=== PATIENT | male | born 1990 ===

== ENCOUNTER 2019-04-10 17:59 | Day surgery (SDC) | payer SELFPAY ==
[~2019-04-10] VITALS: Ht 172.7 cm; Wt 66.9 kg
[2019-04-10] VITALS (9 sets, daily range): BP systolic 124–149; BP diastolic 56–87
[~2019-04-10 17:59] MED LIST: OMEP20CA13 PO; PANT40TA2 PO
[2019-04-10 18:29] LABS: BASOPHILS % (AUTO) 0 % (0-10); EOSINOPHILS % (AUTO) 0 % (0-10); HEMATOCRIT 44 % (40-54); HEMOGLOBIN 15.6 G/DL (13.3-17.7); LYMPHOCYTES % (AUTO) 6 % (12-44); MEAN CORPUSCULAR HEMOGLOBIN 31 PG (25-34); MEAN CORPUSCULAR HGB CONC 35 G/DL (32-36); MEAN CORPUSCULAR VOLUME 88 FL (80-99); MEAN PLATELET VOLUME 9.9 FL (7.4-10.4); MONOCYTES # (AUTO) 1.1 X 10^3 (0.0-1.0); MONOCYTES % (AUTO) 6 % (0-12); NEUTROPHILS # (AUTO) 16.2 X 10^3 (1.8-7.8); NEUTROPHILS % (AUTO) 88 % (42-75); PLATELET COUNT 270 10^3/uL (130-400); WHITE BLOOD COUNT 18.4 10^3/uL (4.3-11.0)
[2019-04-10] MEDS ORDERED: HOLD METFORMIN - RECEIVED CONTRAST 20 ML VIAL IV SCH (18:30)
[2019-04-10] MEDS ORDERED: fentaNYL INJECTION 100 MCG/2 ML AMP IVP ONE ×2 (18:30→20:15)
[2019-04-10] MEDS ORDERED: NS 100 ML (IVPB) BAG IV ONE (18:30)
[2019-04-10] MEDS ORDERED: IOHEXOL 350 MG/ML 100 ML (OMNIPAQUE 350) VIAL IV ONE (18:30)
--- NOTE | 2019-04-10 18:30 | ED Abdominal Pain ---
General Chief Complaint: Abdominal/GI Problems Stated Complaint: FEVER/STOMACH PAIN Nursing Triage Note: AMB TO ROOM WITH FEMALE REPORTS HAS HAD LOW ABD PAIN SINCE THIS AM FEELING LIKE HE COULD VOMIT ,BUT UNABALE TO. HAD HERNIA SURG IN NOVEMBER Sepsis Screen: No Definite Risk Source of Information: Patient Exam Limitations: No Limitations History of Present Illness Date Seen by Provider: Apr 10, 2019 Time Seen by Provider: 18:27 Initial Comments To ER with reports of lower abdominal pain this morning. He is a poor appetite. Fever up to 99. Nausea no vomiting because he's had a Tamar fundoplication. [place] constipated like he needed to have a bowel movement but was unable to do so. He did take some Pepto-Bismol. Timing/Duration: 12-24 Hours Severity/Quality: Moderate Radiation: No Radiation Activities at Onset: None Allergies and Home Medications Allergies Coded Allergies: No Known Drug Allergies (Unverified , 05/06/15) Home Medications Pantoprazole Sodium 40 Mg Tablet.dr, 40 MG PO DAILY Prescribed by: STAN GOODMAN on 05/06/15 7407 Patient Home Medication List Home Medication List Reviewed: Yes Review of Systems Review of Systems Constitutional: see HPI EENTM: No Symptoms Reported Respiratory: No Symptoms Reported Cardiovascular: No Symptoms Reported Gastrointestinal: See HPI, Abdominal Pain Genitourinary: No Symptoms Reported Musculoskeletal: no symptoms reported Skin: no symptoms reported Psychiatric/Neurological: No Symptoms Reported Endocrine: No Symptoms Reported Past Srvblte-Ufwpvh-Ybhqmt Hx Patient Social History Alcohol Use: Denies Use Recreational Drug Use: No Smoking Status: Never a Smoker Recent Foreign Travel: No Contact w/Someone Who Travel: No Recent Infectious Disease Expo: No Past Medical History Surgeries: Yes (HERNIA) Respiratory: No Cardiac: No Neurological: No Gastrointestinal: No Musculoskeletal: No Endocrine: No Physical Exam Vital Signs Vital Signs - First Documented 04/10/19 18:09 Temp 99.2 Pulse 85 Resp 18 B/P (MAP) 129/79 (96) Pulse Ox 100 O2 Delivery Room Air Capillary Refill : Less Than 3 Seconds Height/Weight/BMI Height: 5'11.00" Weight: 150lbs. oz. 68.843168mz; BMI Method:Stated General Appearance: WD/WN, no apparent distress HEENT: PERRL/EOMI, normal ENT inspection Respiratory: no respiratory distress, no accessory muscle use Cardiovascular: regular rate, rhythm, no murmur Gastrointestinal: normal bowel sounds, soft, tenderness Extremities: normal range of motion, non-tender Neurologic/Psychiatric: alert, normal mood/affect, oriented x 3 Skin: normal color, warm/dry Progress/Results/Core Measures Results/Orders Lab Results Laboratory Tests Test 04/10/19 18:15 04/10/19 18:30 Range/Units White Blood Count 18.4 H 4.3-11.0 10^3/uL Red Blood Count 5.04 4.35-5.85 10^6/uL Hemoglobin 15.6 13.3-17.7 G/DL Hematocrit 44 40-54 % Mean Corpuscular Volume 88 80-99 FL Mean Corpuscular Hemoglobin 31 25-34 PG Mean Corpuscular Hemoglobin Concent 35 32-36 G/DL Red Cell Distribution Width 12.0 10.0-14.5 % Platelet Count 270 130-400 10^3/uL Mean Platelet Volume 9.9 7.4-10.4 FL Neutrophils (%) (Auto) 88 H 42-75 % Lymphocytes (%) (Auto) 6 L 12-44 % Monocytes (%) (Auto) 6 0-12 % Eosinophils (%) (Auto) 0 0-10 % Basophils (%) (Auto) 0 0-10 % Neutrophils # (Auto) 16.2 H 1.8-7.8 X 10^3 Lymphocytes # (Auto) 1.0 1.0-4.0 X 10^3 Monocytes # (Auto) 1.1 H 0.0-1.0 X 10^3 Eosinophils # (Auto) 0.0 0.0-0.3 10^3/uL Basophils # (Auto) 0.0 0.0-0.1 10^3/uL Neutrophils % (Manual) 89 % Lymphocytes % (Manual) 2 % Monocytes % (Manual) 5 % Eosinophils % (Manual) 0 % Basophils % (Manual) 0 % Band Neutrophils 3 % Reactive Lymphocytes 1 % Blood Morphology Comment NORMAL Sodium Level 135 135-145 MMOL/L Potassium Level 3.8 3.6-5.0 MMOL/L Chloride Level 100 98-107 MMOL/L Carbon Dioxide Level 21 21-32 MMOL/L Anion Gap 14 5-14 MMOL/L Blood Urea Nitrogen 10 7-18 MG/DL Creatinine 0.87 0.60-1.30 MG/DL Estimat Glomerular Filtration Rate > 60 BUN/Creatinine Ratio 11 Glucose Level 156 H 70-105 MG/DL Calcium Level 10.3 H 8.5-10.1 MG/DL Corrected Calcium 8.5-10.1 MG/DL Total Bilirubin 2.1 H 0.1-1.0 MG/DL Aspartate Amino Transf (AST/SGOT) 26 5-34 U/L Alanine Aminotransferase (ALT/SGPT) 22 0-55 U/L Total Protein 8.4 H 6.4-8.2 GM/DL Albumin 5.0 H 3.2-4.5 GM/DL Urine Color YELLOW Urine Clarity CLEAR Urine pH 8 5-9 Urine Specific [place] 1.015 L 1.016-1.022 Urine Protein 1+ H NEGATIVE Urine Glucose (UA) NEGATIVE NEGATIVE Urine Ketones 4+ H NEGATIVE Urine Nitrite NEGATIVE NEGATIVE Urine Bilirubin NEGATIVE NEGATIVE Urine Urobilinogen NORMAL NORMAL MG/DL Urine Leukocyte Esterase 1+ H NEGATIVE Urine RBC (Auto) NEGATIVE NEGATIVE Urine RBC NONE /HPF Urine WBC 0-2 /HPF Urine Squamous Epithelial Cells RARE /HPF Urine Crystals PRESENT H /LPF Urine Amorphous Sediment MOD HELEN PHOSPHATE H /LPF Urine Bacteria TRACE /HPF Urine Casts NONE /LPF Urine Mucus MODERATE H /LPF Urine Culture Indicated NO My Orders Orders - VITALY MARTINEZ APRN Cbc With Automated Diff (04/10/19 18:23) Comprehensive Metabolic Panel (04/10/19 18:23) Ua Culture If Indicated (04/10/19 18:23) Ed Iv/Invasive Line Start (04/10/19 18:23) Ct Abd/Pelv W (Appendicitis) (04/10/19 18:23) Fentanyl Injection (Sublimaze Injection (04/10/19 18:30) Manual Differential (04/10/19 18:15) Iohexol Injection (Omnipaque 350 Mg/Ml 1 (04/10/19 18:30) Received Contrast (Hold Metformin- Contr (04/10/19 18:30) Ns (Ivpb) (Sodium Chloride 0.9% Ivpb Bag (04/10/19 18:30) Ondansetron Injection (Zofran Injectio (04/10/19 18:45) Ns Iv 1000 Ml (Sodium Chloride 0.9%) (04/10/19 19:00) Medications Given in ED Current Medications Medications Dose Ordered Sig/King Route Start Time Stop Time Status Last Admin Dose Admin Fentanyl Citrate 50 mcg ONCE ONCE IVP 04/10/19 18:30 04/10/19 18:31 DC 04/10/19 18:30 50 MCG Iohexol 100 ml ONCE ONCE IV 04/10/19 18:30 04/10/19 18:31 DC 04/10/19 18:54 100 ML Sodium Chloride 100 ml ONCE ONCE IV 04/10/19 18:30 04/10/19 18:31 DC 04/10/19 18:54 100 ML Vital Signs/I&O 04/10/19 04/10/19 18:09 18:30 Temp 99.2 99.2 Pulse 85 Resp 18 B/P (MAP) 129/79 (96) Pulse Ox 100 O2 Delivery Room Air Blood Pressure Mean: 96 Departure Impression Primary Impression: Acute appendicitis Qualified Codes: K35.30 - Acute appendicitis with localized peritonitis, without perforation or gangrene Disposition: ADMITTED INPATIENT Condition: Stable Admissions Decision to Admit Reason: Admit from ER (General) Decision to Admit/Date: Apr 10, 2019 Time/Decision to Admit Time: 19:01 Departure-Patient Inst. Referrals: NO,LOCAL PHYSICIAN (PCP/Family) Primary Care Physician VITALY MARTINEZ CORN PRESS OPERATOR Apr 10, 2019 18:29
[2019-04-10 18:37] LABS: BILIRUBIN,URINE NEGATIVE (NEGATIVE); CLARITY,URINE CLEAR; COLOR,URINE YELLOW; GLUCOSE, URINE (UA) NEGATIVE (NEGATIVE); KETONES,URINE 4+ (NEGATIVE); LEUKOCYTE ESTERASE ,URINE 1+ (NEGATIVE); NITRITE,URINE NEGATIVE (NEGATIVE); PH,URINE 8 (5-9); PROTEIN,URINE 1+ (NEGATIVE); UROBILINOGEN,URINE NORMAL (NORMAL)
[2019-04-10 18:43] LABS: ALANINE AMINOTRANSFERASE 22 U/L (0-55); BILIRUBIN,TOTAL 2.1 MG/DL (0.1-1.0); BUN/CREATININE RATIO 11; CALCIUM 10.3 MG/DL (8.5-10.1); CARBON DIOXIDE 21 MMOL/L (21-32); CHLORIDE 100 MMOL/L (98-107); CREATININE SERUM 0.87 MG/DL (0.60-1.30); GFR ESTIMATED > 60; GLUCOSE 156 MG/DL (70-105); POTASSIUM 3.8 MMOL/L (3.6-5.0); SODIUM 135 MMOL/L (135-145); TOTAL PROTEIN 8.4 GM/DL (6.4-8.2)
[2019-04-10 18:45] LABS: BAND NEUTROPHILS 3 %; BASOPHILS % (MANUAL) 0 %; EOSINOPHILS % (MANUAL) 0 %; LYMPHOCYTES % (MANUAL) 2 %; MONOCYTES % (MANUAL) 5 %; NEUTROPHILS % (MANUAL) 89 %; RBC MORPH NORMAL; REACTIVE LYMPHOCYTES 1 %
[2019-04-10] MEDS ORDERED: ONDANSETRON 4 MG/2 ML (SDV) Z0FRAN IVP ONE ×2 (18:45→20:30)
[2019-04-10 18:47] LABS: AMORPHOUS SEDIMENT,UR MOD AMOR PHOSPHATE /LPF; BACTERIA,URINE TRACE /HPF; SQUAMOUS EPITHELIAL CELL,UR RARE /HPF; WBC,URINE 0-2 /HPF
[2019-04-10] MEDS ORDERED: NS IV 1000 ML 1,000 ML IV SCH (19:00)
[2019-04-10 19:12] LABS: ALKALINE PHOSPHATASE 92 U/L (40-136)
--- NOTE | 2019-04-10 19:17 | Diagnostic Imaging Report ---
PROCEDURE: CT abdomen and pelvis with contrast, rule out appendicitis. TECHNIQUE: Multiple contiguous axial images were obtained through the abdomen and pelvis after the administration of intravenous contrast. INDICATION: Right lower quadrant pain with nausea. COMPARISON: None available. FINDINGS: Lower chest: The lung bases are clear. No pericardial or pleural effusion. Peritoneum: No free intraperitoneal air. A small amount of free pelvic fluid is present. Liver and biliary system: The liver is normal. The gallbladder is normal. No biliary duct dilation. Spleen and Pancreas: Spleen is normal. The pancreas enhances normally without mass lesion or peripancreatic inflammatory changes. Adrenals: Normal. tract: The kidneys enhance normally without suspicious mass or obstruction. Urinary bladder is distended without wall thickening. Prostate is not enlarged. GI tract: Stomach is filled with air and a small amount of fluid, and there is no wall thickening. No bowel obstruction. No pericolonic inflammatory changes. Appendix is dilated measuring 11 mm, and fluid filled. There is a small amount of surrounding inflammation involving the appendix. No loculated fluid collection to indicate abscess. Vasculature and Lymph nodes: Normal caliber aorta. No abdominal or pelvic lymphadenopathy. Musculoskeletal: No concerning osseous lesion. IMPRESSION: 1. Acute appendicitis. No perforation, abscess formation, or bowel obstruction. 2. A small amount of free pelvic ascites is likely reactive in nature. Dictated by: Dictated on workstation # [id number]
[2019-04-10] MEDS ORDERED: LIDOCAINE PF 2% 5 ML (XYLOCAINE) VIAL ONE (20:06)
[2019-04-10] MEDS ORDERED: MIDAZOLAM 2 MG/2 ML (VERSED) VIAL ONE (20:06)
[2019-04-10] MEDS ORDERED: DEXAMETHASONE 10 MG/ML (DECADRON) 1 ML VIAL ONE (20:06)
[2019-04-10] MEDS ORDERED: proPOfol 200 MG/20 ML (DIPRIVAN) VIAL IV ONE (20:06)
[2019-04-10] MEDS ORDERED: fentaNYL INJECTION 100 MCG/2 ML AMP ONE (20:06)
[2019-04-10] MEDS ORDERED: ONDANSETRON 4 MG/2 ML (SDV) Z0FRAN ONE (20:06)
[2019-04-10] MEDS ORDERED: SEVOFLURANE (ULTANE) 15 ML INHAL SOLN ONE ×4 (20:06→21:46)
[2019-04-10] MEDS ORDERED: ROCURONIUM 10 MG/ML 5 ML SYRINGE IV ONE (20:06)
[2019-04-10] MEDS ORDERED: BUP/EPI 0.5% 1:200,000 (MARCAINE) 10ML VIAL IJ ONE (20:13)
--- NOTE | 2019-04-10 20:37 | Consultation - Surgery ---
History of Present Illness History of Present Illness Patient Consulted On(trent/time) 04/10/19 20:31 Time Seen by Provider: 20:18 History of Present Illness Surgery asked to consult regarding RLQ pain. HPI per ED: AMB TO ROOM WITH FEMALE REPORTS HAS HAD LOW ABD PAIN SINCE THIS AM FEELING LIKE HE COULD VOMIT ,BUT UNABALE TO. HAD HERNIA SURG IN NOVEMBER To ER with reports of lower abdominal pain this morning. He is a poor appetite. Fever up to 99. Nausea no vomiting because he's had a Tamar fundoplication. [place] constipated like he needed to have a bowel movement but was unable to do so. He did take some Pepto-Bismol. Timing/Duration: 12-24 Hours Severity/Quality: Moderate Radiation: No Radiation Activities at Onset: None When I spoke to pt tonight he states that the pain started when he woke up and got progressively worse; he has not been able to eat. He states the same thing happened to him a couple of weeks ago, but it went away. He describes a sharp crampy pain that is made worse with movement and pain meds are the only thing that help the pain. Allergies and Home Medications Allergies Coded Allergies: No Known Drug Allergies (Unverified , 05/06/15) Home Medications Pantoprazole Sodium 40 Mg Tablet.dr, 40 MG PO DAILY Prescribed by: STAN GOODMAN on 05/06/15 1433 Patient Home Medication List Home Medication List Reviewed: Yes Past Jlfgnlo-Lzkbhk-Vwmyxc Hx Patient Social History Alcohol Use: Denies Use Recreational Drug Use: No Smoking Status: Never a Smoker Recent Foreign Travel: No Contact w/Someone Who Travel: No Recent Infectious Disease Expo: No Surgeries History of Surgeries: Yes (HERNIA) Respiratory History of Respiratory Disorde: No Cardiovascular History of Cardiac Disorders: No Neurological History of Neurological Disord: No Gastrointestinal History of Gastrointestinal Di: No Musculoskeletal History of Musculoskeletal Dis: No Endocrine History of Endocrine Disorders: No Cancer History of Cancer: No Integumentary History of Skin or Integumenta: No Blood Transfusions History of Blood Disorders: No Adverse Reaction to a Blood Tr: No Reviewed Nursing Assessment Reviewed/Agree w Nursing PMH: No Family Medical History Significant Family History: Diabetes (pt denies any in family), Hypertension (Denies) Review of Systems-General Constitutional: chills, fever, malaise, weakness EENTM: No blurred vision, No double vision, No mouth pain, No mouth swelling, No epistaxis Respiratory: No cough, No dyspnea on exertion, No hemoptysis, No short of breath Cardiovascular: No chest pain, No edema, No palpitations Gastrointestinal: abdominal pain, constipation; No hematemesis, No jaundice Genitourinary: No dysuria, No frequency, No hematuria Musculoskeletal: No joint pain, No joint swelling, No muscle pain, No muscle s tiffness Skin: No change in color, No change in hair/nails Psychiatric/Neurological: Denies Anxiety, Denies Depressed, Denies Seizure; Tremors Other pt denies any abnormal bleeding or bruising, no heat or cold intolerance Physical Exam-General Problems Physical Exam Vital Signs Vital Signs - First Documented 04/10/19 18:09 Temp 99.2 Pulse 85 Resp 18 B/P (MAP) 129/79 (96) Pulse Ox 100 O2 Delivery Room Air Capillary Refill : Less Than 3 Seconds General Appearance: WD/WN, no apparent distress Eyes: Bilateral Eye PERRL, Bilateral Eye EOMI HEENT: pharynx normal; No scleral icterus (R), No scleral icterus (L) Neck: non-tender, full range of motion, supple, normal inspection Respiratory: chest non-tender, lungs clear, normal breath sounds, no respira tory distress, no accessory muscle use Cardiovascular: regular rate, rhythm, no edema, no murmur Gastrointestinal: normal bowel sounds, soft, no organomegaly, no pulsatile mass; No guarding; tenderness (mostly in RLQ) Back: no CVA tenderness, no vertebral tenderness Extremities: normal range of motion, non-tender, no pedal edema, no calf tenderness 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, no motor/sensory deficits, alert, normal mood/affect, oriented x 3 Skin: normal color, warm/dry Lymphatic: no adenopathy (neck, axilla or groin) Data Review Labs Laboratory Tests 04/10/19 18:15: White Blood Count 18.4H, Red Blood Count 5.04, Hemoglobin 15.6, Hematocrit 44, Mean Corpuscular Volume 88, Mean Corpuscular Hemoglobin 31, Mean Corpuscular Hemoglobin Concent 35, Red Cell Distribution Width 12.0, Platelet Count 270, Mean Platelet Volume 9.9, Neutrophils (%) (Auto) 88H, Lymphocytes (%) (Auto) 6L, Monocytes (%) (Auto) 6, Eosinophils (%) (Auto) 0, Basophils (%) (Auto) 0, Neutrophils # (Auto) 16.2H, Lymphocytes # (Auto) 1.0, Monocytes # (Auto) 1.1H, Eosinophils # (Auto) 0.0, Basophils # (Auto) 0.0, Neutrophils % (Manual) 89, Lymphocytes % (Manual) 2, Monocytes % (Manual) 5, Eosinophils % (Manual) 0, Basophils % (Manual) 0, Band Neutrophils 3, Reactive Lymphocytes 1, Blood Morphology Comment NORMAL, Sodium Level 135, Potassium Level 3.8, Chloride Level 100, Carbon Dioxide Level 21, Anion Gap 14, Blood Urea Nitrogen 10, Creatinine 0.87, Estimat Glomerular Filtration Rate > 60, BUN/Creatinine Ratio 11, Glucose Level 156H, Calcium Level 10.3H, Corrected Calcium , Total Bilirubin 2.1H, Aspartate Amino Transf (AST/SGOT) 26, Alanine Aminotransferase (ALT/SGPT) 22, Alkaline Phosphatase 92, Total Protein 8.4H, Albumin 5.0H 04/10/19 18:30: Urine Color YELLOW, Urine Clarity CLEAR, Urine pH 8, Urine Specific [place] 1.015L, Urine Protein 1+H, Urine Glucose (UA) NEGATIVE, Urine Ketones 4+H, Urine Nitrite NEGATIVE, Urine Bilirubin NEGATIVE, Urine Urobilinogen NORMAL, Urine Leukocyte Esterase 1+H, Urine RBC (Auto) NEGATIVE, Urine RBC NONE, Urine WBC 0- 2, Urine Squamous Epithelial Cells RARE, Urine Crystals PRESENTH, Urine Amorphous Sediment MOD HELEN PHOSPHATEH, Urine Bacteria TRACE, Urine Casts NONE, Urine Mucus MODERATEH, Urine Culture Indicated NO Assessment/Plan Assessment/Plan Assessment/Plan Acute Appy Pt came in with RLQ pain, WBC appx 18k and CT read by radiologist as acute appendicitis. Plan is to take pt to the OR for Laparoscopic appendectomy, possible open. NPO, IV fluids, pain control, anti-emetics. Discussed risks and complications not limited to pain, bleeding, infection, sc ar, damage to bowel and need for further procedure. All questions answered to his satisfaction. Will also order IV ABX to be given 1/2 hour prior to OR. DEDRICK HUFFMAN DO Apr 10, 2019 20:37
[2019-04-10] MEDS ORDERED: ceFAZolin 2 GM/50 ML NS 50 ML IV ONE (20:45)
[2019-04-10] MEDS ORDERED: LACTATED RINGERS 1,000 ML IV PRN (21:32)
[2019-04-10] MEDS ORDERED: morphine INJ 10 MG/ML 1ML (SYR OR VIAL) ONE (21:33)
[2019-04-10] MEDS ORDERED: NEOSTIGMINE 3 MG/3 ML VIAL ONE (21:38)
[2019-04-10] MEDS ORDERED: GLYCOPYRROLATE 0.2 MG/ML (ROBINUL) 2 ML VIAL ONE (21:38)
--- NOTE | 2019-04-10 22:04 | Progress Note-Post Operative ---
Post-Operative Progess Note Surgeon (s)/Saw Feeder (s) Surgeon DEDRICK HUFFMAN DO Saw Feeder: Lei Mahmood, MS III Pre-Operative Diagnosis Acute appy Post-Operative Diagnosis acute appy Procedure & Operative Findings Date of Procedure 04/10/19 Procedure Performed/Findings Lap appy Anesthesia Type GET Estimated Blood Loss Estimated blood loss (mL): scant Specimens/Packing Specimens Removed DEDRICK Reyes DO Apr 10, 2019 22:04
[2019-04-10] MEDS ORDERED: ACHD5005 PO (22:05)
--- NOTE | 2019-04-10 22:06 | Discharge Inst-Surgical ---
Discharge Inst-Surgical Depart Medication/Instructions New, Converted or Re-Newed RX: RX Given to Pt/Family Patient Instructions Follow up Appt: Make appointment for 1 week. [phone] Instructions: No lifting greater than 20 pounds. No strenuous activity. May shower in 24 hours, no tub bath or soaking. Use incentive spirometer at home as directed. No Smoking Skin/Wound Care: May remove bandages in am. You need to leave the Dermabond on incision it will fall off on it's own. Symptoms to Report: Appetite Changes, Extremity Discoloration, Numbness/Tingling, Swelling Increased, Bleeding Excessive, Eyesight Changes, Pain Increased, Urine Color Change, Constipation(Persistent), Fever over 101 degree F, Pain/Pressure in chest, Urinating Difficulty, Cough Up/Vomit Blood, Heart Beat Irreg/Pounding, Pain/Pressure in jaw, Cramps in feet or legs, Lightheadedness, Pain/Pressure in shoulder, Diarrhea(Persistent), Memory Changes Suddenly, Questions/Concerns, Weight gain consecutive days, Dizziness/Fainting, Nausea/Vomiting, Shortness of Breath, Weight gain over 2 pounds If questions or concerns contact your physician Or seek help at emergency department. Activity Activity as Tolerated: Yes Activity Instructions: Avoid Stress to Incision Driving Instructions: No Driving/Refer to Dr. Kincaid Discharge Diet: No Restrictions Diet After 24 Hours: Clear Liquid if Nauseous If Any Problems/Questions/Issu: Contact Your Physician, Go to Emergency Room Skin/Wound Care Infection Signs and Symptoms: Increased Redness, Foul Odor of Wound, Increased Drainage, Skin Itchy or Has a Rash, Increased Swelling, Temperature Above 101 F Bathing Instructions: Shower Stitches/Amanda/Dermabond Dis: Dermabond Ice Pack: Ice On and Off Site DEDRICK HUFFMAN DO Apr 10, 2019 22:06
[2019-04-10] MEDS ORDERED: MEPERIDINE (DEMEROL) INJ 50 MG/ML IVP ONE (22:15)
[2019-04-10] MEDS ORDERED: morphine INJ 10 MG/ML 1ML (SYR OR VIAL) IVP ONE (22:15)
[2019-04-10] MEDS ORDERED: HYDROmorphone 2 MG/ML VIAL (DILAUDID) IV ONE (22:15)
[2019-04-10] MEDS ORDERED: PROMETHAZINE INJ 25 MG/ML (PHENERGAN) AMP IVP ONE (22:15)
[2019-04-10] MEDS ORDERED: ONDANSETRON 4 MG/2 ML (SDV) Z0FRAN IVP PRN (22:15)
[2019-04-10] MEDS ORDERED: HYDROcodone/APAP 5 MG/325 MG (LORTAB) TAB PO PRN (22:15)
--- NOTE | 2019-04-10 22:28 | OPERATIVE REPORT ---
DATE OF SERVICE: 04/10/2019 PREOPERATIVE DIAGNOSIS: Acute appendicitis. POSTOPERATIVE DIAGNOSIS: Acute appendicitis. PROCEDURE PERFORMED: Laparoscopic appendectomy. SURGEON: Alexx Lobo DO. YOUTH PROBATION OFFICER: ANDERS Faria. ANESTHESIA: General endotracheal tube. SPECIMEN: Appendix. BLOOD LOSS: Scant. FLUIDS: Per Anesthesia. POSTOPERATIVE CONDITION: Stable. INDICATION FOR PROCEDURE: The patient is a 28-year-old male who came to the emergency room with right lower quadrant abdominal pain. He had [address] white count and then a CAT scan performed, which was read as acute appendicitis. FINDINGS: The patient had acute appendicitis, a little bit of murky fluid, but did not look perforated. PROCEDURE NOTE: After informed consent was obtained, the patient was brought to the operating room, placed on the operating table in supine position, sterilely prepped and draped in normal fashion. Local lidocaine was used to infiltrate the skin below the umbilicus. I made the incision with #11 blade, carried down through the skin incision and the subcutaneous tissue, deepened down the subcutaneous tissue with Bovie electrocautery down to fascia. Fascia was incised with Bovie electrocautery, then bluntly entered the abdomen, swept a finger around, placed #0 Vicryl nloxoy-dl-ectia suture and placed an 11 mm trocar port under direct visualization. Created pneumoperitoneum and then placed 2 more ports in normal fashion using local lidocaine, 11-blade for stab incision and the VersaStep, all done under direct visualization, one suprapubically and one in the left lower quadrant. The patient then placed slightly Trendelenburg and rotated left, able to move the omentum and intestine out of the way and saw inflamed appendix with some purulent murky fluid around it, carefully able to grasp the mesoappendix and then come across the mesoappendix with a LigaSure, clamping, coagulating and transecting and in this fashion coming all the way across the appendix, transecting the appendiceal artery. Once the appendix was freed up and just attached to the cecum, switched to 5 mm camera, brought Endo-ESTEPHANIE in through the infraumbilical port and clamped across the base of the appendix and then transected and fired, thereby transecting the appendix, removed this and then placed a bag in the abdomen, placed the appendix in the bag and removed this through the infraumbilical incision. I placed the port back into the abdomen, copiously irrigated with normal saline, suctioned out all the fluid, suctioned and irrigated until it was clear, took a picture of this, staple line looked good. The patient may have had a small femoral hernia, took a picture of this on the right side, no other obvious pathology. At this point, placed the patient supine. Pulled the omentum back down in the right lower quadrant covering the cecum and then removed all ports under direct visualization allowing pneumoperitoneum to escape. I closed the infraumbilical incision, closing the fascia with #0 Vicryl [id number]-mv-vkayw suture previously placed. Copiously irrigated all incisions with normal saline. Closed the 2 small 5 mm incisions with a single interrupted 4-0 undyed Monocryl subcuticular stitch, closed the infraumbilical incision with 3 interrupted 4-0 undyed Monocryl subcuticular stitches. Area was cleaned and dried. Dermabond was placed as well as Band-Aids. The patient then transferred to recovery room in stable condition. Sponge, instrument and needle count correct at the end of the case. Job ID: [id number] DocumentID: [id number] Dictated Date: 04/10/2019 22:01:08 Activated Sludge Attendant Date: 04/10/2019 22:27:40 Dictated By: ALEXX LOBO DO
--- NOTE | 2019-04-10 22:30 | NUR ---
PT TO ROOM FROM RECOVERY AT THIS TIME. PT ALERT AND ORIENTED. 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 PT HAS NO C/O AT THIS TIME. WILL CONTINUE TO MONITOR.
[2019-04-10] MEDS: LACTATED RINGERS 1,000 ML IV SCH ×2 (22:33→23:27)
[2019-04-11 04:00] VITALS: BP 113/58
--- NOTE | 2019-04-11 07:53 | Anesthesia-General Post-Op ---
General Patient Condition Mental Status/LOC: Same as Preop Cardiovascular: Satisfactory Nausea/Vomiting: Absent Respiratory: Satisfactory Pain: Controlled Complications: Absent Post Op Complications Complications None Follow Up Care/Instructions Patient Instructions None needed. Anesthesia/Patient Condition Patient Condition Patient is doing well, no complaints, stable vital signs, no apparent adverse anesthesia problems. No complications reported per nursing. BULMARO TREVINO CRNA Apr 11, 2019 07:53
[2019-04-11 08:00] VITALS: BP 115/66
== END 2019-04-11 11:05 | disposition home or self-care (01) ==
LOC: EDUNIT# 17:59 → ER 18:00 → SDC 19:52 → 4TH 23:05 → SDC 04-11 11:05
PROVIDERS: ATTEND Surgery
DX: K35.30 Acute appendicitis with localized peritonitis, without perforation or gangrene (principal); K21.9 Gastro-esophageal reflux disease without esophagitis; Z79.891 Long term (current) use of opiate analgesic; Z79.899 Other long term (current) drug therapy
CPT/HCPCS: 36415; 74177; 80053; 81000; 85007; 85027; 88304; 94664; 96374; 96375; 96376